=== PATIENT | female | born 1945 | race Two or more races ===

== ENCOUNTER → 2018-05-30 | Outpatient (CLI) | payer OTHER | END | disposition home or self-care (01) | LOC: NUCLEAR 07:00 | DX: K80.20 Calculus of gallbladder without cholecystitis without obstruction (principal) | CPT/HCPCS: 78227; A9537 ==

== ENCOUNTER 2018-06-11 07:24 | Outpatient (CLI) | payer OTHER | END 2018-06-11 07:41 | disposition home or self-care (01) | LOC: SONOGRAMA 07:24 | DX: K76.0 Fatty (change of) liver, not elsewhere classified (principal) ==

== ENCOUNTER 2023-01-25 10:52 | Emergency (ER) | payer OTHER ==
[~2023-01-25] VITALS: Ht 162.6 cm; Wt 68.0 kg
[2023-01-25] MEDS ORDERED: ATORVASTATIN CA10 MG PO (11:14)
[2023-01-25] MEDS ORDERED: NASAL MIST126 ML (11:14)
[2023-01-25] MEDS ORDERED: NAMENDA10 MG PO (11:15)
[2023-01-25] MEDS ORDERED: PEPCID AC20 MG PO (12:41)
== END 2023-01-25 12:45 | disposition home or self-care (01) ==
LOC: ER 10:53
DX: M94.0 Chondrocostal junction syndrome [Tietze] (principal); E11.9 Type 2 diabetes mellitus without complications; I10 Essential (primary) hypertension; K21.9 Gastro-esophageal reflux disease without esophagitis
CPT/HCPCS: 36415; 93005; 96365; 96372; 99284; J1885; J3490

== ENCOUNTER 2023-05-12 13:30 | Emergency (ER) | payer OTHER ==
[~2023-05-12] VITALS: Ht 167.6 cm; Wt 80.3 kg
[~2023-05-12 13:30] MED LIST: ATORVASTATIN CA10 MG PO; NAMENDA10 MG PO; NASAL MIST126 ML; PEPCID AC20 MG PO
[2023-05-12 15:18] LABS: HEMATOCRIT 34.7 % (36.0-45.00); HEMOGLOBIN 11.6 g/dL (12.0-15.00); MEAN CELL VOLUME 90.7 fL (80.00-100.00); MEAN CORPUSCULAR HEMOGLOBIN 30.2 pg (27.00-32.0); MEAN CORPUSCULAR HGB CONC 33.3 g/dl (32.0-36.0); PLATELET COUNT 240 K/uL (150-450); RED BLOOD COUNT 3.83 M/uL (4.00-6.00); RED CELL DISTRIBUTION WIDTH 14.3 % (11.5-14.5)
[2023-05-12 15:27] LABS: CALCIUM 9.7 mg/dL (8.5-10.1); CREATININE SERUM 0.7 mg/dL (0.55-1.02); GFR 81.57; POTASSIUM 3.82 mEq/L (3.5-5.1)
[2023-05-12 16:11] LABS: PH,URINE 6.5 (5.0-8.0); URINE APPEARANCE Clear; URINE BILIRRUBIN Negative (NEGATIVE); URINE BLOOD Negative; URINE COLOR Yellow; URINE GLUCOSE Negative (NEGATIVE); URINE LEUKOCYTE Trace; URINE NITRATE Negative; URINE PROTEIN Trace (NEGATIVE)
[2023-05-12 16:15] LABS: URINE BACTERIA 244.3 uL (0.0-1933); URINE EPITHELIAL CELLS 25.9 uL (0.0-38.8); URINE WBC 10.8 uL (0.0-23.2)
== END 2023-05-12 17:13 | disposition home or self-care (01) ==
LOC: ER 13:30
PROVIDERS: Nurse Practitioner Family
DX: N39.498 Other specified urinary incontinence (principal)

== ENCOUNTER 2023-12-30 07:33 | Emergency (ER) | payer OTHER ==
[~2023-12-30] VITALS: Ht 167.6 cm; Wt 77.1 kg
[2023-12-30] MEDS ORDERED: GLUMETZA1000 MG PO (07:52)
[2023-12-30] MEDS ORDERED: JARDIANCE25 MG PO (07:52)
[2023-12-30] MEDS ORDERED: ANALPRAM HC 2.530 GM RECTAL (08:54)
[2023-12-30] MEDS ORDERED: PEPCID AC20 MG PO (08:54)
[2023-12-30] MEDS ORDERED: BACTRIM DS TAB1 EACH PO (08:54)
== END 2023-12-30 09:08 | disposition home or self-care (01) ==
LOC: ER 07:35
DX: N39.0 Urinary tract infection, site not specified (principal); I10 Essential (primary) hypertension; Z85.89 Personal history of malignant neoplasm of other organs and systems; K64.9 Unspecified hemorrhoids; E11.9 Type 2 diabetes mellitus without complications; Z79.84 Long term (current) use of oral hypoglycemic drugs

== ENCOUNTER 2024-02-06 07:36 | Emergency (ER) | payer OTHER ==
[~2024-02-06] VITALS: Ht 165.1 cm; Wt 75.7 kg
[~2024-02-06 07:36] MED LIST changes: +ANALPRAM HC 2.530 GM RECTAL; +BACTRIM DS TAB1 EACH PO; +GLUMETZA1000 MG PO; +JARDIANCE25 MG PO
[2024-02-06 07:48] VITALS: BP 145/82; O2SAT 99
[2024-02-06 10:06] LABS: HEMATOCRIT 40.2 % (36.0-45.00); HEMOGLOBIN 13.1 g/dL (12.0-15.00); MEAN CELL VOLUME 90.6 fL (80.00-100.00); MEAN CORPUSCULAR HEMOGLOBIN 29.6 pg (27.00-32.0); MEAN CORPUSCULAR HGB CONC 32.6 g/dl (32.0-36.0); PLATELET COUNT 255 K/uL (150-450); RED BLOOD COUNT 4.43 M/uL (4.00-6.00); RED CELL DISTRIBUTION WIDTH 14.6 % (11.5-14.5)
[2024-02-06 11:28] LABS: CALCIUM 9.5 mg/dL (8.5-10.1); CREATININE SERUM 0.53 mg/dL (0.55-1.02); GFR 112.16; POTASSIUM 4.14 mEq/L (3.5-5.1)
== END 2024-02-06 13:27 | disposition home or self-care (01) ==
LOC: ER 07:38
PROVIDERS: General Practice
DX: R53.81 Other malaise (principal); F41.9 Anxiety disorder, unspecified; E11.9 Type 2 diabetes mellitus without complications; Z79.84 Long term (current) use of oral hypoglycemic drugs

== ENCOUNTER 2024-03-18 10:05 | Emergency (ER) | payer OTHER ==
[~2024-03-18] VITALS: Ht 165.1 cm; Wt 72.6 kg
[2024-03-18 10:54] VITALS: BP 152/85; O2SAT 96
[2024-03-18] MEDS ORDERED: FAMOTIDINE/PF 20 MG/2 ML VIAL IV PUSH STA (11:25)
[2024-03-18] MEDS ORDERED: FAMOTIDINE/PF 20 MG/2 ML VIAL ONE (11:30)
[2024-03-18 12:43] LABS: HEMOGLOBIN 12.9 g/dL (12.0-15.00); MEAN CELL VOLUME 90.5 fL (80.00-100.00); MEAN CORPUSCULAR HGB CONC 33.2 g/dl (32.0-36.0); PLATELET COUNT 221 K/uL (150-450); RED BLOOD COUNT 4.31 M/uL (4.00-6.00); RED CELL DISTRIBUTION WIDTH 15.1 % (11.5-14.5)
[2024-03-18 13:08] LABS: ALBUMIN 3.7 gm/dL (3.4-5.0); BILIRUBIN TOTAL 1.38 mg/dL (0.3-1.2); CALCIUM 9.7 mg/dL (8.5-10.1); CREATININE SERUM 0.66 mg/dL (0.55-1.02); GFR 87.07; GLOBULINA 3.4 G/DL (2.4-3.5); POTASSIUM 4.49 mEq/L (3.5-5.1); TOTAL PROTEIN 7.1 gm/dL (6.4-8.2)
== END 2024-03-18 13:52 | disposition home or self-care (01) ==
LOC: ER 10:08
PROVIDERS: General Practice
DX: K29.70 Gastritis, unspecified, without bleeding (principal); R10.9 Unspecified abdominal pain